=== PATIENT | female | born 1935 | race Caucasian/White ===

== ENCOUNTER 2017-01-29 15:53 | Emergency (ER) | payer SELFPAY ==
[~2017-01-29] VITALS: Ht 162.6 cm; Wt 60.0 kg
[2017-01-29 15:56] VITALS: BP 146/70; PULSE 65; RESP 13; TEMP 97.7; O2SAT 99
[2017-01-29] MEDS ORDERED: PRED-503 PO (16:54)
--- NOTE | 2017-01-29 16:54 | PD ---
HPI Chief Complaint: Skin Problem Time Seen by Provider: 16:52 Travel History International Travel<30 days: No Contact w/Intl Traveler<30days: No Traveled to known affect area: No History of Present Illness HPI 81-year-old female presents to emergency Department with complaint of itchy rash to bilateral facial cheeks and forehead since Wednesday afternoon. She states she flew on a plane here for on Wednesday from [place] and thinks she may have had a reaction to the pillows on the plane. Says she has very sensitive skin and it reacts easily to new fabrics. Denies airway edema, shortness of breath, tongue edema, lip edema, wheezing, difficulty breathing. Denies fever, vomiting. Denies change in vision, drainage from her eyes. She has not taken any medications or tried any treatments to alleviate her symptoms. Symptoms are mild in severity. No known aggravating or relieving factors. No known allergies. Has no other medical complaints. No other modifying factors or associated signs and symptoms. [facility] Social History Tobacco Use: No Allergies-Medications (Allergen,Severity, Reaction): Coded Allergies: No Known Allergies (Unverified , 01/29/17) Reported Meds & Prescriptions Reported Meds & Active Scripts Active Deltasone (Prednisone) 20 Mg Tab 40 Mg PO DAILY 4 Days start 01/30/2017 Review of Systems Except as stated in HPI: all other systems reviewed are Neg Physical Exam Narrative GENERAL: Well-nourished, well-developed elderly, female patient, in no acute distress; afebrile, nontoxic-appearing SKIN: Warm and dry. Erythemic rash noted to bilateral facial cheeks and forehead. HEAD: Atraumatic. Normocephalic. EYES: Pupils equal and round. No scleral icterus. No injection or drainage. EOMI. PERRLA. ENT: Mucosa pink and moist. No erythema or exudates. No uvular edema. No uvular , palatal, or tonsillar deviation. Airway patent. EARS: Bilateral pinnae and external canals appear within normal limits. Bilateral tympanic membranes without erythema, dullness or perforation. NECK: Trachea midline. No lymphadenopathy. CARDIOVASCULAR: Regular rate. RESPIRATORY: No accessory muscle use. GASTROINTESTINAL: Rounded. MUSCULOSKELETAL: No obvious deformities. No clubbing. No cyanosis. No edema. NEUROLOGICAL: Awake and alert. Oriented 3. No obvious cranial nerve deficits. Motor grossly within normal limits. Normal speech. Moves all extremities. 5/5 strength to all extremities. PSYCHIATRIC: Appropriate mood and affect; insight and judgment normal. Data Data Last Documented VS Vital Signs Date Time Temp Pulse Resp B/P (MAP) Pulse Ox O2 Delivery O2 Flow Rate FiO2 01/29/17 17:16 01/29/17 15:56 97.7 65 13 99 Orders Orders Prednisone (Deltasone) (01/29/17 17:00) Ed Discharge Order (01/29/17 16:54) [facility] Medical Decision Making Medical Screen Exam Complete: Yes Emergency Medical Condition: Yes Medical Record Reviewed: Yes Differential Diagnosis Contact dermatitis, nonspecific rash of the face, hives Narrative Course 81-year-old female with facial rash. Rash is itchy. May of been exposed to a pillow on an airplane causing the rash. Patient is afebrile and nontoxic- appearing. Denies fever, vomiting. No acute distress. Denies airway edema, shortness of breath, tongue edema. Deltasone prescribed for home. Instructed patient to follow up with primary care provider. Patient verbalizes understanding and agreement with treatment plan. Patient is medically cleared and stable for discharge. Discussed reasons to return to the emergency department. Patient agrees with treatment plan. The patients vital signs are stable and the patient is stable for outpatient follow-up and treatment. Patient discharged home, stable and in no acute distress. Diagnosis Primary Impression: Rash of face Referrals: [employer] Primary Care Physician Patient Instructions: Contact Dermatitis (ED), General Allergic Reaction (ED), General Instructions Additional Instructions: Take oral steroids as prescribed Remn-dok-yqftopc topicals to reduce itch Benadryl as directed and as needed to reduce itch Follow-up with your primary care provider Return to the emergency department immediately with worsening of symptoms Med/Other Pt SpecificInfo: Prescription(s) given Scripts Prednisone (Deltasone) 20 Mg Tab 40 MG PO DAILY for 4 Days, #8 TAB 0 Refills start 01/30/2017 Prov: Pebbles Antonio 01/29/17 Disposition: 01 DISCHARGE HOME Condition: Stable Pebbles Antonio Jan 29, 2017 16:54
[2017-01-29] MEDS ORDERED: predniSONE 20 MG TAB PO ONE (17:00)
== END 2017-01-29 17:21 | disposition home or self-care (01) ==
LOC: NEPK 15:53
DX: R21 Rash and other nonspecific skin eruption (principal)
CPT/HCPCS: 99283; J7512